=== PATIENT | female | born 1980 | race Caucasian/White ===

== ENCOUNTER 2016-10-26 12:22 | Emergency (ER) | payer OTHER ==
[2016-10-26 13:01] VITALS: BMI 25.9
[2016-10-26 13:02] VITALS: TEMP 98.8
[2016-10-26] MEDS ORDERED: Sodium Chloride 0.9% 1,000 ML IV STA (13:03)
[2016-10-26] MEDS ORDERED: DiphenhydrAMINE 50 mg/ml Inj IVP STA (13:03)
[2016-10-26 13:08] VITALS: RESP 16
[2016-10-26 13:14] LABS: ADD MANUAL DIFF? NO
[2016-10-26 13:19] LABS: BASO # 0.02 K/mm3 (0.0-2.0); BASO % 0.5 % (0.0-3.0); EOS % 0.7 % (1.5-5.0); GRAN % 59.4 % (50.0-68.0); HEMATOCRIT 38.3 % (36.0-48.0); LYMPH # 1.4 (1.2-3.4); LYMPH % 31.6 % (22.0-35.0); MEAN CELL VOLUME 84.7 fL (80.0-105.0); MEAN CORPUSCULAR HEMOGLOBIN 28.5 pg (25.0-35.0); MEAN CORPUSCULAR HGB CONC 33.7 g/dl (31.0-37.0); MEAN PLATELET VOLUME 10.8 fl (7.0-11.0); MONO # 0.3 (0.1-0.6); MONO % 7.8 % (1.0-6.0); PLATELET COUNT 206 10^3/uL (120.0-450.0); RED CELL DISTRIBUTION WIDTH 12.7 % (11.5-14.5); WHITE BLOOD COUNT 4.4 10^3/ul (4.5-11.0)
--- NOTE | 2016-10-26 13:24 | ED PDOC ---
Arrival/HPI - General Chief Complaint: Headache Time Seen by Provider: 10/26/16 13:02 Historian: Patient - History of Present Illness Narrative History of Present Illness (Text): 10/26/16 13:20 Ronak Cleveland is a 36 year old female who presents to the emergency department complaining of 3 day duration of headache associated with nausea and non-blood, non-bilious vomit. States that headache is not sudden onset and is not the worst headache of her life. Denies any abdominal pain. Denies fever, chills, dizziness, chest pain, shortness of breath, urinary symptoms or any other complaints at this time. Time/Duration: < week (3 days ) Symptom Onset: Gradual Symptom Course: Unchanged Severity Level: Mild Activities at Onset: Light Context: Home Past Medical History - Provider Review Nursing Documentation Reviewed: Yes - Past Medical History Past Medical History: No Previous - Cardiac Hx Cardiac Disorders: No - Pulmonary Hx Respiratory Disorders: No - Neurological Hx Neurological Disorder: No - HEENT Hx HEENT Disorder: No - Renal Hx Renal Disorder: No - Endocrine/Metabolic Hx Endocrine Disorders: No - Hematological/Oncological Hx Blood Disorders: No - Integumentary Hx Dermatological Disorder: No - Musculoskeletal/Rheumatological Hx Musculoskeletal Disorders: No - Gastrointestinal Hx Gastrointestinal Disorders: Yes Hx Hemorrhoids: Yes - Genitourinary/Gynecological Hx Genitourinary Disorders: No - Psychiatric Hx Psychophysiologic Disorder: No Hx Depression: No Hx Emotional Abuse: No Hx Physical Abuse: No Hx Substance Use: No - Past Surgical History Past Surgical History: No Previous - Anesthesia Hx Anesthesia: No Hx Malignant Hyperthermia: No - Suicidal Assessment Feels Threatened In Home Enviroment: No Family/Social History - Physician Review Nursing Documentation Reviewed: Yes Family/Social History: No Known Family HX Smoking Status: Never Smoked Hx Alcohol Use: No Hx Substance Use: No Hx Substance Use Treatment: No Allergies/Home Meds Allergies/Adverse Reactions: Allergies No Known Allergies Allergy (Verified 07/15/16 11:38) Physical Exam - Physical Exam Narrative Physical Exam (Text): - Review of Systems Constitutional: Normal. absent: Fatigue, Weight Change, Fevers Eyes: Normal ENT: Normal Respiratory: Normal absent: SOB, Cough, Sputum Cardiovascular: Normal absent: Chest pain, Palpitations, Syncope Gastrointestinal: Present: Nausea, vomiting. absent: Abdominal pain, Diarrhea Genitourinary: Normal. absent: Dysuria, Frequency, Hematuria Musculoskeletal: Normal. absent: Arthralgias, Back Pain, Neck Pain Skin: Normal Neurological: Present: Headache. absent: Focal Weakness Endocrine: Normal Hemo/Lymphatic: Normal Psychiatric: Normal - Physical exam Patient appears age appropriate, speaking full sentences without difficulty - Systems Exam Head: Present: Atraumatic, Normocephalic Pupils: Present: PERRL Extraocular Muscles: Present: EOMI Conjunctiva: Present: Normal Mouth: Present: Moist Mucous Membranes Neck: Present: Normal Range of Motion. No: MIDLINE TENDERNESS, Paraspinal Tenderness Respiratory/Chest: Present: Clear to Auscultation, Good Air Exchange. No: Respiratory Distress, Accessory Muscle Use, Tachypneic Cardiovascular: Present: Regular Rate and Rhythm, Normal S1, S2, Peripheral Pulses Present. No: Murmurs Abdomen: Present: Normal Bowel Sounds, No: Tenderness, Peritoneal Signs, Rebound, Guarding, Distention Back: Present: Normal Inspection. No: Midline Tenderness, Paraspinal Tenderness Upper Extremity: Present: Normal Inspection. No: Cyanosis, Edema Lower Extremity: Present: Normal Inspection. No: Edema Neurological: Present: GCS=15, Speech Normal, cranial nerves II through XII fully intact with no cerebellar abnormality, neuro-sensory fully intact. No focal neurological deficits. Skin: Present: Warm, Dry, Normal Color. No: Rashes Lymphatic: Present: OX3, NI, NC Psychiatric: Present: Alert, Oriented x 3, Normal Insight, Normal Concentration Vital Signs Reviewed: Yes Vital Signs Temp Pulse Resp BP Pulse Ox 10/26/16 13:02 98.8 F 93 H 16 130/75 97 10/26/16 13:01 98.8 F 93 H 14 130/75 97 Temperature: Afebrile Blood Pressure: Normal Pulse: Regular Respiratory Rate: Normal Appearance: Positive for: Well-Appearing, Non-Toxic, Comfortable Pain Distress: None Mental Status: Positive for: Alert and Oriented X 3 Medical Decision Making ED Course and Treatment: 10/26/16 13:25 Impression: A 36 year old female who presents to the emergency department for evaluation of headache, nausea and vomiting for 3 days. Headache was gradual onset and not the worst headache of her life. No acute findings on physical examination. Differential Diagnosis include but are not limited to: dehydration, viral syndrome Plan: -- Labs -- Benadryl -- Reglan -- IV fluids -- Toradol -- urine culture -- Urinalysis -- Reassess and disposition Progress Notes: 10/26/16 15:04 No acute findings on patient's blood work On reevaluation, patient states that she feels much better, patient's body aches , nausea, vomiting resolved. Patient states that she feels comfortable being discharged home with outpatient follow-up. Patient is tolerating PO without any difficulty. Patient's repeat abdominal exam is soft nontender nondistended with positive bowel sounds in all 4 quadrants and no peritoneal signs. Pt states she understands to return to the ER right away for new or worsening symptoms or for inability to f/u with PMD or specialist as instructed. Patient states that she fully agrees with and understands discharge instructions. States that she agrees with the plan and disposition. Verbalized and repeated discharge instructions and plan. I have given the patient opportunity to ask any additional questions. - Lab Interpretations Lab Results: 10/26/16 13:13 10/26/16 13:13 Lab Results 10/26/16 13:13: WBC 4.4 L, RBC 4.52, Hgb 12.9, Hct 38.3, MCV 84.7, MCH 28.5, MCHC 33.7, RDW 12.7, Plt Count 206, MPV 10.8, Gran % 59.4, Lymph % (Auto) 31.6, [place] % (Auto) 7.8 H, Eos % (Auto) 0.7 L, Baso % (Auto) 0.5, Gran # 2.60, Lymph # 1.4, [place] # 0.3, Eos # 0.0, Baso # 0.02, Sodium 141, Potassium 4.3, Chloride 99, Carbon Dioxide 31, Anion Gap 15, BUN 11, Creatinine 0.7, Est GFR ( Amer) > 60, Est GFR (Non-Af Amer) > 60, Random Glucose 75, Calcium 9.4, Total Bilirubin 0.4, AST 41 H, ALT 52, Alkaline Phosphatase 32 L, Total Protein 8.1, Albumin 4.3, Globulin 3.8, Albumin/Globulin Ratio 1.1, Urine Color Yellow, Urine Appearance Clear, Urine pH 7.0, Ur Specific [place] 1.015, Urine Protein Negative, Urine Glucose (UA) Negative, Urine Ketones Negative, Urine Blood Trace -intact H, Urine Nitrate Negative, Urine Bilirubin Negative, Urine Urobilinogen 0.2, Ur Leukocyte Esterase Trace H, Urine RBC 1 - 3, Urine WBC 1 - 3, Ur Epithelial Cells 1 - 3, Urine HCG, Qual Negative - Medication Orders Current Medication Orders: Discontinued Medications Diphenhydramine HCl (Benadryl) 25 mg IVP STAT STA Stop: 10/26/16 13:04 Last Admin: 10/26/16 13:17 Dose: 25 MG IVP Administration Document 10/26/16 13:17 HI (Rec: 10/26/16 13:17 [id number]) Charges for Administration # of IVP Administrations 1 Sodium Chloride (Sodium Chloride 0.9%) 1,000 mls @ 1,000 mls/hr IV .Q1H STA Stop: 10/26/16 14:02 Last Admin: 10/26/16 13:18 Dose: 1,000 MLS/HR eMAR Start Stop Document 10/26/16 13:18 HI (Rec: 10/26/16 13:18 [id number]) Intravenous Solution Start Date 10/26/16 Start Time 13:18 Ketorolac Tromethamine (Toradol) 15 mg IVP STAT STA Stop: 10/26/16 13:04 Last Admin: 10/26/16 13:18 Dose: 15 MG IVP Administration Document 10/26/16 13:18 HI (Rec: 10/26/16 13:18 [id number]) Charges for Administration # of IVP Administrations 1 Metoclopramide HCl (Reglan) 10 mg IVP STAT STA Stop: 10/26/16 13:05 Last Admin: 10/26/16 13:18 Dose: 10 MG IVP Administration Document 10/26/16 13:18 HI (Rec: 10/26/16 13:18 [id number]) Charges for Administration # of IVP Administrations 1 - Scribe Statement The provider has reviewed the documentation as recorded by the Lyndon Bernal Provider Attestation: All medical record entries made by the Mingibrosaura were at my direction and personally dictated by me. I have reviewed the chart and agree that the record accurately reflects my personal performance of the history, physical exam, medical decision making, and the department course for this patient. I have also personally directed, reviewed, and agree with the discharge instructions and disposition. Disposition/Present on Arrival - Present on Arrival Any Indicators Present on Arrival: No History of DVT/PE: No History of Uncontrolled Diabetes: No Urinary Catheter: No History of Decub. Ulcer: No History Surgical Site Infection Following: None - Disposition Have Diagnosis and Disposition been Completed?: Yes Diagnosis: Headache Disposition: HOME/ ROUTINE Disposition Time: 15:06 Patient Plan: Discharge Condition: GOOD Discharge Instructions (ExitCare): General Headache (ED) Additional Instructions: PLEASE RETURN TO THE EMERGENCY DEPARTMENT FOR NEW OR WORSENING SYMPTOMS. RETURN RIGHT AWAY IF YOU CANNOT FOLLOW UP WITH YOUR PRIMARY CARE DOCTOR, CLINIC, OR SPECIALIST IN 1-2 DAYS. Prescriptions: Ibuprofen [Motrin] 600 mg PO Q8 PRN #12 tab PRN Reason: Pain, Moderate (4-7) Famotidine [Pepcid] 20 mg PO BID #14 tab Ondansetron [Zofran Odt] 4 mg PO Q6 PRN #14 odt PRN Reason: Nausea/Vomiting
[2016-10-26 13:26] LABS: URINE BILIRUBIN NEGATIVE (NEGATIVE); URINE BLOOD TRACE-INTACT (NEGATIVE); URINE GLUCOSE (UA) NEGATIVE (NEGATIVE); URINE KETONE NEGATIVE (NEGATIVE); URINE LEUKOCYTE ESTERASE TRACE Leu/uL (NEGATIVE); URINE PROTEIN NEGATIVE mg/dL (<30 mg/dL); URINE UROBILINOGEN 0.2 E.U./dL (<1 E.U./dL)
[2016-10-26 13:27] LABS: ALB/GLOB RATIO 1.1 (1.1-1.8); ALKALINE PHOSPHATASE 32 U/L (38-133); ALT/SGPT 52 U/L (7-56); AST/SGOT 41 U/L (15-39); BILIRUBIN,TOTAL 0.4 mg/dL (0.2-1.3); BLOOD UREA NITROGEN 11 mg/dL (7-21); CALCIUM 9.4 mg/dL (8.4-10.5); CARBON DIOXIDE 31 mmol/L (21-33); CHLORIDE 99 mmol/L (98-107); GFR AFRICAN-AMERICAN > 60; GLUCOSE,RANDOM 75 mg/dL (70-110); POTASSIUM 4.3 mmol/L (3.6-5.0); SODIUM 141 mmol/L (132-148); TOTAL PROTEIN 8.1 g/dL (5.8-8.3)
[2016-10-26 13:31] LABS: URINE APPEARANCE CLEAR (CLEAR); URINE COLOR YELLOW (YELLOW)
[2016-10-26 15:24] VITALS: O2SAT 100
[2016-10-26 17:19] VITALS: BP 122/72; PULSE 79
== END 2016-10-26 17:20 | disposition home or self-care (01) ==
LOC: ED 12:22
DX: R51 Headache (principal)
CPT/HCPCS: 80053; 81001; 84703; 85025; 87086; 96374; 96375; 99285; J1200; J1885; J2765; J7040